=== PATIENT | female | born 1980 | race Caucasian/White ===

== ENCOUNTER 2022-03-25 14:17 | Outpatient (CLI) | payer BC ==
[2022-03-25 15:17] LABS: Anion Gap 14 mmol/L (10-20); BUN (Urea Nitrogen) 13 mg/dL (7.0-18.7); Calc. Creatinine Clearance 0 mL/min (70-130); Calcium 9.1 mg/dL (7.8-10.44); Carbon Dioxide 23 mmol/L (22-29); Chloride 107 mmol/L (98-107); Glucose 118 mg/dL (70-105); Potassium 4.1 mmol/L (3.5-5.1); Sodium 140 mmol/L (136-145)
[2022-03-25 15:18] LABS: Platelet Count 225 10x3/uL (150-450)
[2022-03-25 15:20] LABS: Hemoglobin 10.9 g/dL (12.0-15.5); Mean Corpuscular HGB CONC 31.2 g/dL (32.0-36.0); Mean Corpuscular Hemoglobin 24.6 pg (27.0-33.0); Mean Corpuscular Volume 78.8 fl (81.6-98.3); RBC Distribution Width 20.1 % (11.5-14.5); Red Blood Cell (RBC) Count 4.43 10x6/uL (3.90-5.03); White Blood Cell (WBC) Count 9.1 10x3/uL (3.5-10.5)
== END 2022-03-25 14:18 | disposition home or self-care (01) ==
LOC: CSHLAB 14:17
PROVIDERS: ATTEND Podiatrist Foot & Ankle Surgery
DX: Z01.812 Encounter for preprocedural laboratory examination (principal); Z20.822 Contact with and (suspected) exposure to COVID-19; M67.472 Ganglion, left ankle and foot
CPT/HCPCS: 80048; 85027; U0003; U0005

== ENCOUNTER 2022-03-30 09:58 | Day surgery (SDC) | payer BC ==
[2022-03-25 11:26] VITALS: BMI 35.4
[2022-03-30] MEDS ORDERED: Lidocaine 1% MPF 2 ML VIAL ONE (11:20)
[2022-03-30] MEDS ORDERED: Bupivacaine PF 0.5% 30 ML VIAL ONE (11:55)
[2022-03-30] MEDS ORDERED: Neomycin-Polymyxin 1 ML AMP ONE (11:56)
[2022-03-30] MEDS ORDERED: Fentanyl 100 MCG/2 ML VIAL ONE ×2 (12:25→13:05)
[2022-03-30] MEDS ORDERED: ceFAZolin 2 GM/Dextrose 50 ML IVPB ONE (12:25)
[2022-03-30] MEDS ORDERED: Midazolam HCl 2 mg/2 ml Vial ONE (12:25)
[2022-03-30] MEDS ORDERED: PROPOFOL 20 ML ONE (12:25)
[2022-03-30] MEDS ORDERED: Lidocaine 1% PF 5 ML VIAL ONE (12:26)
[2022-03-30] MEDS ORDERED: Ketorolac Tromethamine 30 MG/ML VIAL ONE (12:26)
[2022-03-30] MEDS ORDERED: Ondansetron PF 4 MG/2 ML Vial ONE (12:26)
[2022-03-30] MEDS ORDERED: Dexamethasone 20 MG/5 ML VIAL ONE (12:26)
[2022-03-30] MEDS ORDERED: Glycopyrrolate 0.2 MG/ML 5 ML SYRINGE ONE (12:58)
== END 2022-03-30 14:01 | disposition home or self-care (01) ==
LOC: CSHSDC 09:58
PROVIDERS: ATTEND Podiatrist Foot & Ankle Surgery
PROC: 0JBQ0ZZ Excision of Right Foot Subcutaneous Tissue and Fascia, Open Approach (ICD-10-PCS; principal; 2022-03-30)
DX: D17.23 Benign lipomatous neoplasm of skin and subcutaneous tissue of right leg (principal); I10 Essential (primary) hypertension
CPT/HCPCS: 88304; J0690; J1100; J1885; J2250; J2405; J2704; J3010; S0020